=== PATIENT | female | born 2000 | race Caucasian/White ===

== ENCOUNTER 2020-03-19 10:07 | Outpatient (REF) | payer OTHER, SELFPAY ==
[2020-03-19 11:32] LABS: Hematocrit 41.9 % (37-47); Hemoglobin 13.9 g/dl (12.0-16.0); Mean Corpuscular HGB Conc 33.2 g/dl (31.0-35.0); Mean Corpuscular Hemoglobin 28.8 pg (27.0-33.0); Mean Corpuscular Volume 86.7 fL (80-98); Mean Platelet Volume 10.9 fL (9.4-12.3); Platelet Count 244 X10*3/uL (160-400); Red Blood Count 4.83 X10*6/uL (4.20-5.50); Red Cell Distribution Width 13.2 % (11.0-16.0); White Blood Count 5.7 X10*3/uL (4.8-10.8)
[2020-03-19 12:15] LABS: Alanine Aminotransferase 15 U/L (0-31); Albumin Level 4.3 g/dL (3.5-5.0); Alkaline Phosphatase 64 U/L (39-117); Anion Gap 13 (12-20); Aspartate Amino Transferase 17 U/L (5-31); Bilirubin Total 0.5 mg/dL (0.0-1.0); Blood Urea Nitrogen 10 mg/dL (9-16); Calcium 8.9 mg/dL (8.4-10.2); Carbon Dioxide 26 mmol/L (22-29); Chloride 105 mmol/L (96-108); Cholesterol 178 mg/dL; Estimated Glomerular Filt Rate > 60; Glucose Fasting 81 mg/dL (60-99); HDL Cholesterol 59 mg/dL; Iron 53 mcg/dL (30-160); LDL Cholesterol Calculated 111 mg/dl; Percent Iron Saturation 15 % (15-50); Potassium 4.3 mmol/l (3.3-5.1); Sodium 140 mmol/L (135-145); Total Iron Binding Capacity 345 mcg/dL (228-428); Total Protein 7.1 g/dL (6.5-8.0); Triglycerides 44 mg/dL; Unsaturated Iron Binding 292 ug/dL
[2020-03-19 12:18] LABS: TSH reflex Free T4 0.65 mIU/mL (0.32-4.0)
== END 2020-03-19 10:08 | disposition home or self-care (01) ==
LOC: HO.HMGCLDS 10:07
PROVIDERS: PCP Internal Medicine; Visit Provider Internal Medicine
DX: Z00.00 Encounter for general adult medical examination without abnormal findings (principal)
CPT/HCPCS: 36415; 80053; 80061; 83540; 84443; 85027